=== PATIENT | male | born 1990 | race Caucasian/White ===

== ENCOUNTER 2022-07-26 12:01 | Emergency (ER) | payer SELFPAY ==
[~2022-07-26] VITALS: Ht 177.8 cm; Wt 118.2 kg
[2022-07-26 12:13] VITALS: BP 149/81
[2022-07-26] MEDS ORDERED: CORTSUSP AS (12:38)
[2022-07-26] MEDS ORDERED: PSEU-191 PO (12:38)
[2022-07-26] MEDS ORDERED: HYDR-4072 PO (12:38)
[2022-07-26] MEDS ORDERED: CEPH-558 PO (12:38)
== END 2022-07-26 12:43 | disposition home or self-care (01) ==
LOC: EMS 12:01
DX: H66.92 Otitis media, unspecified, left ear (principal); H60.92 Unspecified otitis externa, left ear; J06.9 Acute upper respiratory infection, unspecified
CPT/HCPCS: 99283; Z7502